=== PATIENT | male | born 1955 | race Caucasian/White ===

== ENCOUNTER 2024-01-02 20:54 | Emergency (ER) | payer MEDICARE ==
[~2024-01-02 20:54] MED LIST: Iopamidol 370 76% 100 ML VIAL ONE
[2024-01-02] MEDS ORDERED: Mag-Al Plus 1200/1200/120 MG (30 mL) UDCUP ONE (21:23)
[2024-01-02] MEDS ORDERED: Ondansetron ODT 4 MG TAB ONE (21:23)
[2024-01-02] MEDS ORDERED: Lidocaine 2% Viscous 100 ML BOTTLE ONE (21:23)
[2024-01-02 21:32] LABS: Bilirubin Negative (Negative); Blood, Urine Negative (Negative); Clarity Clear (Clear); Glucose, Urine (Dipstick) >=1000 mg/dL (Negative); Ketone, Urine Trace mg/dL (Negative); Leukocyte Negative (Negative); Nitrite Negative (Negative); Protein, Urine (Dipstick) Negative (Neg-Trace); Specific Gravity, Urine 1.015 (1.005-1.030); Urobilinogen 0.2 mg/dL (Less than 2)
[2024-01-02 21:37] LABS: CAUTI Indications for Culture Pelvic or flank pain; RBC/HPF None Seen HPF (0-3); Squamous Epithelial 0-3 HPF (0-3); WBC/HPF 0-3 HPF (0-3)
[2024-01-02 21:38] LABS: Urine Culture Reflex No No
[2024-01-02 21:51] LABS: Hematocrit 46.3 % (42.0-52.0); Mean Corpuscular HGB CONC 32.3 g/dL (32.0-36.0); Platelet Count 259 10x3/uL (130-400); RBC Distribution Width 12.1 % (11.5-14.5); Red Blood Cell (RBC) Count 4.98 mill/uL (4.70-6.10); White Blood Cell (WBC) Count 14.4 10x3/uL (4.8-10.8)
[2024-01-02 21:53] LABS: Eosinophils 1 % (0-10); Lymphocytes 11 % (21-51); MDiff Complete? YES; Monocytes 5 % (0-10); Neutrophil 83 % (42-75)
[2024-01-02 21:58] LABS: INR-International Normal Ratio 0.9; PTT 23.7 sec (22.9-36.1); Prothrombin Time 12.6 sec (12.0-14.7)
[2024-01-02 22:09] LABS: ALT (SGPT) 30 U/L (8-55); AST (SGOT) 22 U/L (5-34); Albumin 4.5 g/dL (3.4-4.8); Alkaline Phosphatase 75 U/L (40-110); Anion Gap 20 mmol/L (10-20); BUN (Urea Nitrogen) 21 mg/dL (8.4-25.7); Bilirubin, Total 1.1 mg/dL (0.2-1.2); Calc. Creatinine Clearance 0 mL/min (70-130); Calcium 10.3 mg/dL (7.8-10.44); Carbon Dioxide 25 mmol/L (23-31); Chloride 99 mmol/L (98-107); Estimated GFR 66; Globulin 2.5 g/dL (2.4-3.5); Glucose 176 mg/dL (80-115); Lipase 49 U/L (8-78); Potassium 4.3 mmol/L (3.5-5.1); Sodium 140 mmol/L (136-145); Troponin I Less than 0.010 ng/mL (< 0.028)
[2024-01-02] MEDS ORDERED: Dicyclomine 20 MG/2 ML VIAL ONE (22:22)
[2024-01-02] MEDS ORDERED: Sodium Chloride 0.9% 1,000 ML ONE (23:27)
[2024-01-02] MEDS ORDERED: cefTRIAXone (ROCEPHIN) 1 GM VIAL ONE (23:27)
[2024-01-02] MEDS ORDERED: Morphine 2 MG/ML VIAL ONE (23:53)
[2024-01-02] MEDS ORDERED: Ondansetron PF 4 MG/2 ML Vial ONE (23:53)
[2024-01-03] MEDS ORDERED: HYDROmorphone 0.5 MG/0.5 ML SYRINGE ONE (00:05)
== END 2024-01-03 01:33 | disposition short-term general hospital (02) ==
LOC: MADERS 20:54
DX: K56.609 Unspecified intestinal obstruction, unspecified as to partial versus complete obstruction (principal); E11.9 Type 2 diabetes mellitus without complications; I10 Essential (primary) hypertension; Z79.899 Other long term (current) drug therapy; R10.9 Unspecified abdominal pain
CPT/HCPCS: 43753; 71045; 74022; 74177; 80053; 81001; 83605; 83690; 84484; 85025; 85610; 85730; 93005; 96361; 96372; 96374; 96375; J0696; J1170; J2272; J2405; J7050; Q0162; Q9967